=== PATIENT | female | born 1975 | race Caucasian/White ===

== ENCOUNTER → 2020-03-20 14:10 | Outpatient (CLI) | payer MEDICAID, SELFPAY ==
--- NOTE | 2020-03-20 14:12 | CA_ITS ---
APPROVED REPORT Left Lower Extremity Venous Study for DVT. [employer] Developer: Leonor Piper, RVT Indications Lower Extremity Pain: Left Lower Extremity Edema: Left Pt was shot beginning of Feb, known DVT LLE Risk Factors Prior Phlebitis/DVT Trauma Past History DVT : Left Medications Pt was on Eliqus was switched to Xarelto today Vein Imaging CFV (L): compressive, spontaneous, phasic, augmentation FEM (L): Non-Compressible, Thrombus POP (L): Non-Compressible, Thrombus PTV (L): Non-Compressible, Thrombus GSV (L): Compressible Peroneals (L):Compressible GAS (L): Compressible Findings Study suggests DVT of the left femoral, politeal and posterior tibial vein. Other deep veins of the left lower extremity are normal. Study suggests no evidence of SVT of the left lower extremity. Conclusion Study suggests DVT of the left femoral, politeal and posterior tibial vein. Other deep veins of the left lower extremity are normal. Study suggests no evidence of SVT of the left lower extremity. Critical Notification Critical Value: Yes Physician Notified Date: 03/20/2020 Time: 14:42 Physician Name: Dr Rawls Electronically signed by : Bijan Moon MD 03/20/2020 15:51:40
== END ==
PROVIDERS: PCP Family Medicine; Visit Provider Family Medicine
DX: M79.662 Pain in left lower leg (principal); R52 Pain, unspecified; R60.9 Edema, unspecified
CPT/HCPCS: 93971